=== PATIENT | female | born 1985 | race Caucasian/White ===

== ENCOUNTER 2017-03-14 09:02 | Emergency (ER) | payer OTHER ==
[2017-03-14 09:07] VITALS: BP 116/76
--- NOTE | 2017-03-14 09:49 | ER Document Report ---
HPI - HPI Patient complains to provider of: sore throat Onset: Other - tuesday Onset/Duration: Sudden Quality of pain: Sharp Pain Level: 3 Context: 31 yo female with sore thraot and odynophagia since . no fever. Associated Symptoms: None Exacerbated by: Other - swallowing Relieved by: Denies - ROS ROS below otherwise negative: Yes Systems Reviewed and Negative: Yes All other systems reviewed and negative - REPRODUCTIVE LMP: 02/27/17 - DERM Skin Color: Normal Past Medical History - General Information source: Patient - Social History Smoking Status: Current Every Day Smoker Frequency of alcohol use: None Drug Abuse: None Lives with: Family Family History: Reviewed & Not Pertinent Patient has suicidal ideation: No Patient has homicidal ideation: No - Past Medical History Cardiac Medical History: Reports: None Renal/ Medical History: Denies: Hx Peritoneal Dialysis Surgical Hx: Negative Vertical Provider Document - CONSTITUTIONAL Agree With Documented VS: Yes Exam Limitations: No Limitations General Appearance: No Apparent Distress - INFECTION CONTROL TRAVEL OUTSIDE OF THE [place] IN LAST 30 DAYS: No - HEENT HEENT: Pharyngeal Erythema. negative: Conjuctival Injection, Tympanic Membrane Red - NECK Neck: Supple, Lymphadenopathy-Left - anterior, Lymphadenopathy-Right - anterior - RESPIRATORY Respiratory: Breath Sounds Normal, No Respiratory Distress O2 Sat by Pulse Oximetry: 100 - CARDIOVASCULAR Cardiovascular: Regular Rate, Regular Rhythm - GI/ABDOMEN Gastrointestinal: Abdomen Non-Tender, No Organomegaly - MUSCULOSKELETAL/EXTREMETIES Musculoskeletal/Extremeties: MAEW, FROM - NEURO Level of Consciousness: Awake, Alert - DERM Integumentary: Warm, Dry Course - Vital Signs Vital signs: Temp Pulse Resp BP Pulse Ox 97.5 F 59 L 16 116/76 100 03/14/17 09:06 03/14/17 09:06 03/14/17 09:06 03/14/17 09:06 03/14/17 09:06 Discharge - Discharge Clinical Impression: Sore throat Condition: Good Disposition: HOME, SELF-CARE Instructions: Penicillin V K ([facility]), Sore Throat ([facility]), Stop Smoking ([facility]) Additional Instructions: Chloraseptic spray to lessen the pain quit smoking see your doctor if not better in 1 week, sooner if worse Naproxen Tylenol Penicillin until it is gone Please complete the patient satisfaction survey if you get one, and return it.. If you do not receive a survey, then you can go to the [facility] website, [email or web address] and place your comments about your very good care. Thank you very much. It was a pleasure being your medical provider today. Prescriptions: Penicillin V Potassium [Penicillin Vk 500 mg Tablet] 500 mg PO QID #40 tablet Forms: Return to Work
== END 2017-03-14 10:00 | disposition home or self-care (01) ==
LOC: ER 09:02
DX: J02.9 Acute pharyngitis, unspecified (principal); R13.10 Dysphagia, unspecified; F17.200 Nicotine dependence, unspecified, uncomplicated
CPT/HCPCS: 87880; 99283